=== PATIENT | female | born 1995 | race Two or more races ===

== ENCOUNTER → 2023-08-23 21:48 | Emergency (ER) | payer OTHER ==
[~2023-08-23] VITALS: Ht 177.8 cm; Wt 118.0 kg
[2023-08-23 22:05] VITALS: BP 126/83; PULSE 84; RESP 20; O2SAT 96
[2023-08-23 23:18] LABS: Urine Amorphous Crystal FEW /hpf (None Seen); Urine Bacteria FEW /hpf (None Seen); Urine Blood 3+ /uL (Negative); Urine Clarity HAZY (Clear); Urine Color Yellow (Yellow); Urine Mucus FEW (None Seen); Urine Protein, UAD Negative (Negative); Urine Specific Gravity 1.014 (1.001-1.035); Urine Urobilinogen Normal (Negative); Urine WBC 33 /hpf (0 - 5)
== END | disposition left against medical advice (07) ==
LOC: ER 21:48
DX: O90.89 Other complications of the puerperium, not elsewhere classified (principal); Z53.21 Procedure and treatment not carried out due to patient leaving prior to being seen by health care provider
CPT/HCPCS: 81001